=== PATIENT | male | born 1945 | race Caucasian/White ===

== ENCOUNTER 2018-06-03 18:20 | Inpatient (IN) | payer MEDICARE ==
[2018-06-03] MEDS ORDERED: SODIUM CHLORIDE 0.9% 1000ML 1,000 ML IV ONE ×2 (18:27→21:08)
[2018-06-03] MEDS ORDERED: ACETAMINOPHEN 1,000 MG/100 ML VIAL IV ONE (18:28)
[2018-06-03] MEDS ORDERED: ERTAPENEM SODIUM 1 GM PDS 1 GM in SODIUM CHLORIDE 0.9% 50 ML 50 ML IV ONE (18:33)
[2018-06-03] MEDS ORDERED: ALBUTEROL/IPRATROPIUM 1 VIAL SOL ONE (18:42)
[2018-06-03] MEDS ORDERED: ERTAPENEM SODIUM 1 GM PDS ONE (18:45)
[2018-06-03 18:52] LABS: HEMATOCRIT 42 % (39-53); HEMOGLOBIN 13.7 gm/dl (13.5-17.7); MEAN CORPUSCULAR HGB CONC 33.1 gm/dl (32.0-36.0); MEAN CORPUSCULAR VOLUME 85 fL (80-100)
[2018-06-03] MEDS ORDERED: ALBUTEROL/IPRATROPIUM 1 VIAL SOL INH ONE (18:52)
[2018-06-03 19:03] LABS: LACTIC ACID 3.6 mMol/L (0.0-2.0)
[2018-06-03] MEDS ORDERED: SODIUM CHLORIDE 0.9% FLUSH 10 ML SOL IV PRN (19:04)
[2018-06-03 19:14] LABS: ALBUMIN 2.9 gm/dl (3.4-5.0); ALKALINE PHOSPHATASE 100 IU/L (46-116); ALT 22 IU/L (14-63); AST 17 IU/L (15-37); BILIRUBIN,TOTAL 0.6 mg/dl (0.2-1.0); BLOOD UREA NITROGEN 20 mg/dl (7-18); CALCIUM 8.8 mg/dl (8.5-10.1); CARBON DIOXIDE 26.5 mEq/L (21-32); CHLORIDE 98 mMol/L (98-107); CREATININE 1.13 mg/dl (0.80-1.30); GLUCOSE 187 mg/dl (74-106); POTASSIUM 4.1 mMol/L (3.5-5.1); SODIUM 135 mMol/L (136-145); THYROID STIMULATING HORMONE 1.366 uIU/ml (0.358-3.740); TOTAL PROTEIN 7.2 gm/dl (6.4-8.2); TROP I < 0.017 ng/ml (0.000-0.056)
[2018-06-03 19:33] LABS: BAND NEUTROPHILS % (MANUAL) 23 %; BASOPHILS % (MANUAL) 1 % (0-3); EOSINOPHILS % (MANUAL) 0 % (0-9); LYMPHOCYTES % (MANUAL) 6 % (10-50); MONOCYTES % (MANUAL) 1 % (0-12); NEUTROPHILS % (MANUAL) 69 % (37-80); PLATELET MORPHOLOGY COMMENT OCC GIANT FORMS
[2018-06-03 19:34] LABS: NORMAL RBCS PRESENT
[2018-06-03 19:36] LABS: APPEARANCE,URINE Clear; BILIRUBIN,URINE NEGATIVE (NEGATIVE); COLOR,URINE Yellow; GLUCOSE, URINE (UA) 1+ (NEGATIVE); KETONES,URINE 1+ (NEGATIVE); LEUKOCYTE ESTERASE ,URINE NEGATIVE (NEGATIVE); NITRATE,URINE NEGATIVE (NEGATIVE); OCCULT BLOOD,URINE NEGATIVE (NEG-TRACE); UROBILINOGEN,URINE 0.2 (0.2-1.0 EU)
[2018-06-03 19:43] LABS: BACTERIA NEGATIVE (< 1+); CRYSTALS NEGATIVE (0-3 AVE/HPF); RBC,URINE NEG (0-3AV/HPF); WBC,URINE 0-1 (0-5AV/HPF)
[2018-06-03] MEDS ORDERED: SODIUM CHLORIDE 0.9% 1000ML 1,000 ML IV NR (21:15)
[2018-06-04] MEDS ORDERED: Non-Formulary Medication MISC (Nystatin 1 Gm Powder 1 APPL) TOP PRN (01:58)
[2018-06-04] MEDS ORDERED: DM/GUAIFENESIN SYRUP 10 ML SYRP PO PRN (01:58)
[2018-06-04] MEDS ORDERED: ZINC OXIDE TOP PRN (01:58)
[2018-06-04] MEDS ORDERED: MAGNESIUM HYDROXIDE 30 ML SUS PO PRN ×2 (01:58→02:30)
[2018-06-04] MEDS ORDERED: CLOTRIMAZOLE 1% CREAM TOP PRN (01:58)
[2018-06-04] MEDS ORDERED: ALUMINUM/MAGNESIUM 30 ML SUS PO PRN (01:58)
[2018-06-04] MEDS ORDERED: VALPROIC ACID 250 MG SGL PO ONE (03:00)
[2018-06-04] MEDS ORDERED: RISPERIDONE 1 MG TAB PO ONE (03:00)
[2018-06-04] MEDS: ACETAMINOPHEN 325 MG PO PRN ×2 (03:29→14:26)
[2018-06-04] MEDS: SODIUM CHLORIDE 0.9% FLUSH 10 ML SOL IV SCH ×3 (03:29→16:32)
[2018-06-04] MEDS: SODIUM CHLORIDE 0.9% 1000ML 1,000 ML IV SCH ×3 (03:30→23:54)
[2018-06-04] MEDS: ALBUTEROL/IPRATROPIUM 1 VIAL SOL INH SCH ×4 (06:49→20:58)
[2018-06-04] MEDS ORDERED: Non-Formulary Medication MISC (Levothyroxine Sodium 88 Mcg 88 MCG) PO SCH (07:00)
[2018-06-04] MEDS ORDERED: SODIUM CHLORIDE 0.9% 500 ML 500 ML IV ONE (08:49)
[2018-06-04] MEDS ORDERED: GABAPENTIN 50 MG PO SCH (09:00)
[2018-06-04] MEDS ORDERED: DULOXETINE 40 MG PO SCH (09:00)
[2018-06-04] MEDS ORDERED: VALPROIC ACID 250 MG SGL PO SCH (09:00)
[2018-06-04 09:13] LABS: HEMATOCRIT 35 % (39-53); HEMOGLOBIN 11.4 gm/dl (13.5-17.7); MEAN CORPUSCULAR HGB CONC 32.7 gm/dl (32.0-36.0); MEAN CORPUSCULAR VOLUME 86 fL (80-100)
[2018-06-04 09:26] LABS: INFLUENZA A NEGATIVE (NEGATIVE); INFLUENZA B NEGATIVE (NEGATIVE)
[2018-06-04 09:28] LABS: ALBUMIN 2.2 gm/dl (3.4-5.0); BILIRUBIN,TOTAL 0.4 mg/dl (0.2-1.0); CALCIUM 7.4 mg/dl (8.5-10.1); CARBON DIOXIDE 23.8 mEq/L (21-32); CREATININE 0.87 mg/dl (0.80-1.30); POTASSIUM 3.8 mMol/L (3.5-5.1); TOTAL PROTEIN 5.6 gm/dl (6.4-8.2)
[2018-06-04] MEDS ORDERED: NYSTATIN 1 GM POW TOP PRN (09:30)
[2018-06-04 09:37] LABS: NEUTROPHILS % (MANUAL) 41 % (37-80)
[2018-06-04 09:38] LABS: BAND NEUTROPHILS % (MANUAL) 49 %; BASOPHILS % (MANUAL) 0 % (0-3); EOSINOPHILS % (MANUAL) 0 % (0-9); LYMPHOCYTES % (MANUAL) 2 % (10-50); MONOCYTES % (MANUAL) 8 % (0-12); NORMAL RBCS PRESENT
[2018-06-04] MEDS: MULTIVITAMIN2 1 EA TAB PO SCH (09:54)
[2018-06-04] MEDS: DULOXETINE HCL 20 MG ECC PO SCH (09:55)
[2018-06-04] MEDS: LEVOTHYROXINE SODIUM 88 MCG TAB PO SCH (09:56)
[2018-06-04] MEDS: DIVALPROEX 250 MG TAB.ER.24H PO SCH ×3 (09:56→20:58)
[2018-06-04] MEDS ORDERED: SODIUM CHLORIDE 0.9% 1000ML 1,000 ML IV ONE (13:07)
[2018-06-04 13:46] LABS: HEMATOCRIT 36 % (39-53); HEMOGLOBIN 12.1 gm/dl (13.5-17.7); MEAN CORPUSCULAR HEMOGLOBIN 28.7 pg (27.0-32.0); MEAN CORPUSCULAR HGB CONC 33.5 gm/dl (32.0-36.0); MEAN CORPUSCULAR VOLUME 86 fL (80-100)
[2018-06-04 14:01] LABS: CALCIUM 7.5 mg/dl (8.5-10.1); CREATININE 0.92 mg/dl (0.80-1.30); POTASSIUM 3.6 mMol/L (3.5-5.1)
[2018-06-04 14:04] LABS: CARBON DIOXIDE 25.6 mEq/L (21-32)
[2018-06-04] MEDS: TIOTROPIUM BROMIDE 18 MCG CAP INH SCH (15:25)
[2018-06-04 15:26] LABS: BAND NEUTROPHILS % (MANUAL) 37 %; BASOPHILS % (MANUAL) 0 % (0-3); EOSINOPHILS % (MANUAL) 0 % (0-9); LYMPHOCYTES % (MANUAL) 5 % (10-50); MONOCYTES % (MANUAL) 5 % (0-12); NEUTROPHILS % (MANUAL) 53 % (37-80); NORMAL RBCS PRESENT
[2018-06-04] MEDS ORDERED: SODIUM CHLORIDE 0.9% 50 ML 50 ML IV ONE (18:13)
[2018-06-04] MEDS ORDERED: ERTAPENEM SODIUM 1 GM PDS ONE (18:13)
[2018-06-04] MEDS: ERTAPENEM SODIUM 1 GM PDS 1 GM in SODIUM CHLORIDE 0.9% 50 ML 50 ML IV SCH (18:22)
[2018-06-04] MEDS ORDERED: RISPERIDONE 1 MG TAB PO SCH (21:00)
[2018-06-05] MEDS: SODIUM CHLORIDE 0.9% FLUSH 10 ML SOL IV SCH ×3 (00:41→16:53)
[2018-06-05] MEDS: ALBUTEROL/IPRATROPIUM 1 VIAL SOL INH SCH ×7 (01:14→20:58)
[2018-06-05 07:49] LABS: CALCIUM 7.5 mg/dl (8.5-10.1); CARBON DIOXIDE 23.2 mEq/L (21-32); CREATININE 0.75 mg/dl (0.80-1.30); POTASSIUM 3.1 mMol/L (3.5-5.1)
[2018-06-05] MEDS ORDERED: POTASSIUM CHLORIDE 2 MEQ/ML 60 MEQ, LIDOCAINE HCL 1% MDV 2 ML in SODIUM CHLORIDE 0.9% 1... IV ONE (08:03)
[2018-06-05 08:07] LABS: HEMATOCRIT 34 % (39-53); HEMOGLOBIN 10.9 gm/dl (13.5-17.7); MEAN CORPUSCULAR HEMOGLOBIN 27.6 pg (27.0-32.0); MEAN CORPUSCULAR HGB CONC 32.1 gm/dl (32.0-36.0); MEAN CORPUSCULAR VOLUME 86 fL (80-100)
[2018-06-05 08:46] LABS: BAND NEUTROPHILS % (MANUAL) 21 %; LYMPHOCYTES % (MANUAL) 3 % (10-50); MONOCYTES % (MANUAL) 2 % (0-12); NEUTROPHILS % (MANUAL) 74 % (37-80)
[2018-06-05 08:47] LABS: ANISOCYTOSIS SLIGHT AMT; BASOPHILS % (MANUAL) 0 % (0-3); EOSINOPHILS % (MANUAL) 0 % (0-9)
[2018-06-05] MEDS: DIVALPROEX 250 MG TAB.ER.24H PO SCH ×3 (09:23→20:57)
[2018-06-05] MEDS: LEVOTHYROXINE SODIUM 88 MCG TAB PO SCH (09:23)
[2018-06-05] MEDS: DULOXETINE HCL 20 MG ECC PO SCH (09:23)
[2018-06-05] MEDS ORDERED: SODIUM CHLORIDE 0.9% 50 ML 50 ML IV ONE (09:26)
[2018-06-05] MEDS ORDERED: ERTAPENEM SODIUM 1 GM PDS ONE (09:26)
[2018-06-05] MEDS: POTASSIUM CHLORIDE 10 MEQ TER PO SCH ×2 (09:29→11:40)
[2018-06-05] MEDS: ENOXAPARIN 40 MG SOL SC SCH (09:30)
[2018-06-05] MEDS: ERTAPENEM SODIUM 1 GM PDS 1 GM in SODIUM CHLORIDE 0.9% 50 ML 50 ML IV SCH (09:30)
[2018-06-05] MEDS: SODIUM CHLORIDE 0.9% 1000ML 1,000 ML IV SCH ×3 (09:30→19:30)
[2018-06-05] MEDS: MULTIVITAMIN2 1 EA TAB PO SCH (09:42)
[2018-06-05] MEDS: TIOTROPIUM BROMIDE 18 MCG CAP INH SCH (09:43)
[2018-06-05 13:38] LABS: *EBNA AB Positive (Negative); *EBV VCA IGG AB Positive (Negative); *EBV VCA IGM AB Negative (Negative)
[2018-06-06] MEDS: SODIUM CHLORIDE 0.9% FLUSH 10 ML SOL IV SCH ×2 (00:19→09:25)
[2018-06-06] MEDS: ALBUTEROL/IPRATROPIUM 1 VIAL SOL INH SCH ×3 (01:22→09:38)
[2018-06-06] MEDS: SODIUM CHLORIDE 0.9% 1000ML 1,000 ML IV SCH (03:22)
[2018-06-06] MEDS: LEVOTHYROXINE SODIUM 88 MCG TAB PO SCH (06:25)
[2018-06-06 07:31] LABS: CARBON DIOXIDE 23.6 mEq/L (21-32); CREATININE 0.73 mg/dl (0.80-1.30); POTASSIUM 3.3 mMol/L (3.5-5.1)
[2018-06-06 07:38] LABS: HEMATOCRIT 32 % (39-53); HEMOGLOBIN 10.6 gm/dl (13.5-17.7); MEAN CORPUSCULAR HEMOGLOBIN 27.6 pg (27.0-32.0); MEAN CORPUSCULAR HGB CONC 32.7 gm/dl (32.0-36.0); MEAN CORPUSCULAR VOLUME 84 fL (80-100)
[2018-06-06 08:19] LABS: BAND NEUTROPHILS % (MANUAL) 13 %; BASOPHILS % (MANUAL) 0 % (0-3); EOSINOPHILS % (MANUAL) 0 % (0-9); LYMPHOCYTES % (MANUAL) 2 % (10-50); MONOCYTES % (MANUAL) 14 % (0-12); NEUTROPHILS % (MANUAL) 71 % (37-80); PLATELET MORPHOLOGY COMMENT SL DECREASE
[2018-06-06 08:20] LABS: ANISOCYTOSIS SLIGHT AMT; BURR CELLS PRESENT; POIKILOCYTOSIS SLIGHT AMT
[2018-06-06] MEDS ORDERED: CIPROFLOXACIN HCL 500 MG TAB PO SCH (08:30)
[2018-06-06] MEDS ORDERED: POTASSIUM CHLORIDE 10 MEQ TER PO SCH (09:00)
[2018-06-06] MEDS: DIVALPROEX 250 MG TAB.ER.24H PO SCH (09:24)
[2018-06-06] MEDS: MULTIVITAMIN2 1 EA TAB PO SCH (09:24)
[2018-06-06] MEDS: DULOXETINE HCL 20 MG ECC PO SCH (09:25)
[2018-06-06] MEDS: TIOTROPIUM BROMIDE 18 MCG CAP INH SCH (09:25)
[2018-06-06] MEDS: ENOXAPARIN 40 MG SOL SC SCH (09:25)
[2018-06-06 09:28] VITALS: BP 154/87; O2SAT 94
[2018-06-06 09:58] VITALS: PULSE 114; RESP 24
[2018-06-06 10:40] VITALS: TEMP 97.5
== END 2018-06-06 10:15 | DRG 864 ==
LOC: ED 18:20 → ACUTE CARE 22:47
PROVIDERS: ADMIT Family Medicine; ATTEND Family Medicine
PROC: F01L5YZ Range of Motion and Joint Integrity Assessment of Musculoskeletal System - Lower Back / Lower Extremity using Other Equipment (ICD-10-PCS; principal; 2018-06-04)
PROC: F0130FZ Muscle Performance Assessment of Neurological System - Whole Body using Assistive, Adaptive, Supportive or Protective Equipment (ICD-10-PCS; 2018-06-04)
DX: R50.9 Fever, unspecified (principal); A41.9 Sepsis, unspecified organism; F10.27 Alcohol dependence with alcohol-induced persisting dementia; R00.0 Tachycardia, unspecified; R06.02 Shortness of breath; R29.703 NIHSS score 3; R40.2362 Coma scale, best motor response, obeys commands, at arrival to emergency department; R40.2142 Coma scale, eyes open, spontaneous, at arrival to emergency department; R40.2242 Coma scale, best verbal response, confused conversation, at arrival to emergency department; E11.9 Type 2 diabetes mellitus without complications; R79.1 Abnormal coagulation profile; F10.97 Alcohol use, unspecified with alcohol-induced persisting dementia; B96.20 Unspecified Escherichia coli [E. coli] as the cause of diseases classified elsewhere
CPT/HCPCS: 36415; 70450; 71045; 71275; 74177; 80048; 80053; 81001; 82140; 82800; 82962; 83880; 84443; 84484; 85007; 85027; 85378; 87040; 87077; 87186; 87804; 93005; 93012; 94762; 96365; 96366; 99070; 99223; 99285; J1335; J1650; Q9967; A9270-GY; J0131

== ENCOUNTER 2019-02-21 13:04 | Emergency (ER) | payer BC ==
[2019-02-21 13:11] VITALS: BP 130/83; TEMP 98.7
[2019-02-21] MEDS ORDERED: ALBUTEROL/IPRATROPIUM 1 VIAL SOL INH ONE (14:37)
[2019-02-21] MEDS ORDERED: ALBUTEROL/IPRATROPIUM 1 VIAL SOL ONE (15:33)
[2019-02-21 15:40] VITALS: PULSE 84; RESP 20; O2SAT 98
[2019-02-21 16:25] LABS: INFLUENZA A NEGATIVE (NEGATIVE); INFLUENZA B POSITIVE (NEGATIVE)
[2019-02-21] MEDS ORDERED: LIDOCAINE HCL 1% MDV 50 ML SOL SC ONE (18:54)
[2019-02-21 19:04] LABS: BASOPHILS % (AUTO) 1 % (0-3); EOSINOPHILS % (AUTO) 1 % (0-9); HEMATOCRIT 44 % (39-53); HEMOGLOBIN 13.4 gm/dl (13.5-17.7); LYMPHOCYTES % (AUTO) 9.4 % (10-50); MEAN CORPUSCULAR HEMOGLOBIN 25.8 pg (27.0-32.0); MEAN CORPUSCULAR HGB CONC 30.8 gm/dl (32.0-36.0); MEAN CORPUSCULAR VOLUME 84 fL (80-100); MONOCYTES % (AUTO) 16.2 % (0-12); NEUTROPHILS % (AUTO) 72.1 % (37-80)
[2019-02-21 19:31] LABS: BILIRUBIN,TOTAL 0.3 mg/dl (0.2-1.0); CALCIUM 8.8 mg/dl (8.5-10.1); CREATININE 0.63 mg/dl (0.80-1.30); TOTAL PROTEIN 7.7 gm/dl (6.4-8.2)
== END 2019-02-21 21:00 | disposition short-term general hospital (02) | DRG 148 ==
LOC: ED 13:04
DX: C76.0 Malignant neoplasm of head, face and neck (principal); R59.1 Generalized enlarged lymph nodes; F03.90 Unspecified dementia, unspecified severity, without behavioral disturbance, psychotic disturbance, mood disturbance, and anxiety
CPT/HCPCS: 36415; 70491; 71045; 80053; 85025; 87430; 87804; 99284; Q9967

== ENCOUNTER 2019-04-12 12:26 | Emergency (ER) | payer BC | END 2019-04-12 16:30 | LOC: ED 12:26 ==